=== PATIENT | female | born 1990 | race Caucasian/White ===

== ENCOUNTER 2021-09-01 05:32 | Inpatient (IN) | payer BC ==
[2021-09-01] MEDS ORDERED: Citric Acid/Sodium Citrate Solution 30 ML Cup PO ONE (05:35)
[2021-09-01] MEDS ORDERED: Lactated Ringers 1,000 ML IV ONE (05:45)
[2021-09-01] MEDS ORDERED: ceFAZolin 2 GM in Premix Bag 1 BAG IV ONE (06:00)
[2021-09-01] MEDS ORDERED: ceFAZolin 2 GM in Sodium Chloride 0.9% 100 ML IV ONE (06:00)
[2021-09-01 06:30] LABS: CORONAVIRUS COVID-19 NAA NEGATIVE (NEGATIVE)
[2021-09-01] MEDS ORDERED: ePHEDrine 50 MG/ML SDV ONE (07:12)
[2021-09-01] MEDS ORDERED: Oxytocin 10 Units/1 ML SDV ONE (07:14)
[2021-09-01] MEDS ORDERED: ePHEDrine 50 MG/ML SDV IVPUSH PRN ×2 (08:06→08:07)
[2021-09-01] MEDS ORDERED: diphenhydrAMINE 50 MG/ML SDV IVPUSH PRN ×2 (08:06→08:07)
[2021-09-01] MEDS ORDERED: Naloxone 0.4 MG/ML SDV IVPUSH PRN ×2 (08:06→08:07)
[2021-09-01] MEDS ORDERED: HYDROmorphone 0.5 MG/0.5 ML Syringe IVPUSH PRN (08:07)
[2021-09-01] MEDS ORDERED: diphenhydrAMINE 50 MG/ML SDV IV PRN (08:07)
[2021-09-01] MEDS ORDERED: Ondansetron 4 MG/2 ML SDV IV PRN (08:07)
[2021-09-01] MEDS ORDERED: Docusate Sodium 100 MG Cap PO PRN (08:07)
[2021-09-01] MEDS ORDERED: Oxytocin 10 Units/1 ML SDV IM PRN (08:07)
[2021-09-01] MEDS: Prenatal Multivitamin with Calcium/Folic Acid/Iron Tab PO SCH (08:59)
[2021-09-01] MEDS: Ketorolac 30 MG/ML SDV IVPUSH SCH ×2 (09:06→17:51)
[2021-09-01] MEDS: Acetaminophen/oxyCODONE 325-5 MG Tab PO PRN ×2 (10:30→18:21)
[2021-09-02] MEDS: Ketorolac 30 MG/ML SDV IVPUSH SCH ×2 (02:10→08:36)
[2021-09-02] MEDS: Acetaminophen/oxyCODONE 325-5 MG Tab PO PRN (03:06)
[2021-09-02] MEDS: Ibuprofen 800 MG Tab PO PRN (13:08)
[2021-09-02] MEDS: Prenatal Multivitamin with Calcium/Folic Acid/Iron Tab PO SCH (13:10)
[2021-09-02] MEDS: Acetaminophen 325 MG Tab PO PRN (18:31)
[2021-09-03] MEDS: Ibuprofen 800 MG Tab PO PRN ×2 (00:29→08:29)
[2021-09-03] MEDS: Prenatal Multivitamin with Calcium/Folic Acid/Iron Tab PO SCH (08:30)
[2021-09-03] MEDS: Acetaminophen 325 MG Tab PO PRN (15:16)
== END 2021-09-03 17:40 | disposition home or self-care (01) | DRG 540 ==
LOC: JP.SDS 05:32 → JP.MS 07:47
PROVIDERS: ADMIT Obstetrics & Gynecology; ATTEND Obstetrics & Gynecology
PROC: 10D00Z1 Extraction of Products of Conception, Low, Open Approach (ICD-10-PCS; principal; 2021-09-01)
DX: O32.1XX0 Maternal care for breech presentation, not applicable or unspecified (principal); Z37.0 Single live birth; Z20.822 Contact with and (suspected) exposure to COVID-19; Z3A.39 39 weeks gestation of pregnancy; Z91.018 Allergy to other foods; Z79.899 Other long term (current) drug therapy
CPT/HCPCS: 0241U; 36415; 80048; 80305-QW; 85027; 86850; 86900; 86901; A9270-GY; J0690; J1885; J2590; J7120

== ENCOUNTER 2021-09-26 17:22 | Emergency (ER) | payer BC | END 2021-09-26 19:25 | disposition home or self-care (01) | LOC: JP.ED 17:22 | DX: B34.9 Viral infection, unspecified (principal); Z48.89 Encounter for other specified surgical aftercare; Z91.018 Allergy to other foods; Z86.16 Personal history of COVID-19 | CPT/HCPCS: 36415; 80053; 81001; 85025; 86140; 99282; 99283 ==